=== PATIENT | female | born 1945 | race Caucasian/White ===

== ENCOUNTER → 2023-07-12 11:04 | Outpatient (CLI) | payer MEDICARE, SELFPAY ==
--- NOTE | 2023-07-12 11:11 | DI.RAD.S_ITS ---
PROCEDURE: FL BARIUM SWALLOW INDICATIONS: Dysphagia, unspecified COMPARISON: None. FINDINGS: Function: There is mild esophageal dysmotility with pooling of contrast and tertiary contractions. There may be minimal elicited gastroesophageal reflux. There is normal transit of a calibrated barium tablet through the esophagus into the stomach. Morphology: Air-contrast images demonstrate normal mucosal morphology. Single contrast views show no esophageal strictures, extrinsic mass effects, or diverticula. Small hiatal hernia. Otherwise, limited images of the stomach demonstrate normal appearance. IMPRESSION: 1. Mild esophageal dysmotility. 2. Small hiatal hernia. 3. There may be minimal gastroesophageal reflux with provocative maneuvers. Dictated by: Elio Maldonado M.D. on 07/12/2023 at 13:03 Approved by: Elio Maldonado M.D. on 07/12/2023 at 13:04
== END ==
PROVIDERS: PCP Physician Assistant Medical; Referring Provider Physician Assistant Medical; Visit Provider Physician Assistant Medical
DX: K22.4 Dyskinesia of esophagus (principal); R13.10 Dysphagia, unspecified; K44.9 Diaphragmatic hernia without obstruction or gangrene
CPT/HCPCS: 74220